=== PATIENT | female | born 1955 | race Caucasian/White ===

== ENCOUNTER 2017-08-24 15:00 | Outpatient (CLI) | payer OTHER ==
--- NOTE | 2017-08-24 19:04 | CT ---
ABDOMEN AND PELVIC CT SCAN WITHOUT IV CONTRAST: 08/24/17 HISTORY: 62-year-old female with left lower quadrant abdominal pain. Noncontrast abdomen and pelvic CT scan is performed. Status post cholecystectomy. Visualized liver, pancreas, spleen, adrenal glands are unremarkable as evaluated without IV contrast. There is no evid ence for acute obstruction. In the left kidney, there is a 0.6 cm diameter calcific focus which a ppears to be more in the cortex of the kidney and associated with focal area of cortical loss. There is a 1.2 cm diameter low attenuation focus in the lower pole which is associated with a small punct ate calcification. This is probably a cyst. No evidence for ureteral calculus. Normal appearing appe ndix. There is some irregular wall thickening and pericolonic fat stranding involving the sigmoid co dwayne with some associated diverticulosis, evidence for acute diverticulitis. No evidence for a draina ble abscess or free intraperitoneal air. IMPRESSION: Evidence for acute sigmoid colon diverticulitis. No obstructing calculus. Small cyst in lower kavya e of the left kidney with adjacent scar and punctate calcification which appears to be more in the c ortex although it is conceivable it could represent a nonobstructing renal calculus. Normal appearin g appendix. Other findings as above. POS: YOVANI
== END 2017-08-24 15:01 | disposition home or self-care (01) ==
LOC: CT 15:00
PROVIDERS: ATTEND Family Medicine
DX: R10.32 Left lower quadrant pain (principal); K57.12 Diverticulitis of small intestine without perforation or abscess without bleeding
CPT/HCPCS: 74176

== ENCOUNTER 2019-02-04 10:14 | Outpatient (CLI) | payer OTHER ==
--- NOTE | 2019-02-04 13:06 | ULT ---
LIMITED LEFT BREAST ULTRASOUND: DATE: 02/04/2019. PROVIDED CLINICAL HISTORY: Left breast palpable abnormality. FINDINGS: Limited sonographic interrogation was performed of the left breast in the region of palpable concern. The sonographic appearance of the breast parenchyma in this region is normal. IMPRESSION: BIRADS category 1 - negative. Negative imaging findings should not preclude further evaluation of a clinically suspicious area. The patient is referred back to her clinician. POS: OFF
--- NOTE | 2019-02-11 13:20 | MMO ---
MAMMO Bilat Diag [facility]. CLINICAL HISTORY: Patient is 63 years old and is seen for diagnostic exam and palpable abnormality in the left breast. The patient has the following family history of breast cancer: aunt, at age 75. The patient has no personal history of cancer. VIEWS: The views performed were: bilateral craniocaudal with tomosynthesis; bilateral mediolateral oblique with tomosynthesis; and bilateral mediolateral with tomosynthesis. FILMS COMPARED: The present examination has been compared to prior imaging studies performed at [facility] on 06/27/1996, 11/27/1999, 03/09/2004, 02/02/2007, 01/05/2010, 11/25/2014, 07/04/2017 and 02/04/2019. MAMMOGRAM FINDINGS: There are scattered fibroglandular densities. There are benign appearing calcifications seen in both breasts. There are no mammographic or sonographic abnormalities in the area of palpable concern. The patient is referred back to her clinician. Negative imaging findings should not preclude biopsy if clinical findings are suspicious. There are no suspicious masses, calcifications or areas of architectural distortion. IMPRESSION: THERE ARE NO MAMMOGRAPHIC OR SONOGRAPHIC ABNORMALITIES IN THE AREA OF PALPABLE CONCERN. THE PATIENT IS REFERRED BACK TO HER CLINICIAN. NEGATIVE IMAGING FINDINGS SHOULD NOT PRECLUDE BIOPSY IF CLINICAL FINDINGS ARE SUSPICIOUS. THE RESULTS OF THIS EXAM WERE SENT TO THE PATIENT. ACR BI-RADS Category 2 - Benign finding MAMMOGRAPHY NOTE: 1. A negative mammogram report should not delay a biopsy if a dominant of clinically suspicious mass is present. 2. Approximately 10% to 15% of breast cancers are not detected by mammography. 3. Adenosis and dense breasts may obscure an underlying neoplasm.
== END 2019-02-04 10:15 | disposition home or self-care (01) ==
LOC: BICMAMMO 10:14
PROVIDERS: ATTEND Family Medicine
DX: N63.20 Unspecified lump in the left breast, unspecified quadrant (principal); Z80.3 Family history of malignant neoplasm of breast
CPT/HCPCS: 77066; G0279

== ENCOUNTER 2020-12-30 06:14 | Emergency (ER) | payer OTHER ==
[2020-12-30 06:59] LABS: #Basophils 0.1 thou/uL (0.0-0.2); #Lymphocytes 1.4 thou/uL (1.20-3.40); #Monocytes 0.4 thou/uL (0.11-0.59); #Neutrophils 5.4 thou/uL (1.40-6.50); %Basophils 0.9 % (0.0-1.0); %Eosinophils 0.5 % (0.0-10.0); %Lymphocytes 18.6 % (21.0-51.0); %Monocytes 5.8 % (0.0-10.0); %Neutrophils 74.2 % (42.0-75.0); Hemoglobin 15.2 g/dL (12.0-16.0); Mean Corpuscular HGB CONC 33.8 g/dL (32.0-36.0); Mean Corpuscular Volume 91.7 fL (78.0-98.0); Mean Platelet Volume 8.6 fL (7.4-10.4); Platelet Count 190 thou/uL (130-400); Red Blood Cell (RBC) Count 4.89 mill/uL (4.20-5.40); White Blood Cell (WBC) Count 7.3 thou/uL (4.8-10.8)
[2020-12-30 07:24] LABS: ALT (SGPT) 50 U/L (8-55); AST (SGOT) 41 U/L (5-34); Alkaline Phosphatase 114 U/L (40-110); Anion Gap 13 mmol/L (10-20); BUN (Urea Nitrogen) 17 mg/dL (9.8-20.1); Bilirubin, Total 0.5 mg/dL (0.2-1.2); Calc. Creatinine Clearance 0 mL/min (70-130); Calcium 8.4 mg/dL (7.8-10.44); Carbon Dioxide 27 mmol/L (23-31); Chloride 99 mmol/L (98-107); Globulin 3.2 g/dL (2.4-3.5); Glucose 138 mg/dL (80-115); Lipase 52 U/L (8-78); Potassium 3.4 mmol/L (3.5-5.1); Protein, Total 7.2 g/dL (5.8-8.1); Sodium 136 mmol/L (136-145)
--- NOTE | 2020-12-30 08:27 | CT ---
CT head noncontrast HISTORY: Syncope. FINDINGS: There is no evidence of acute intracranial hemorrhage or infarct. The ventricles appear nor mal in size, shape and position. There is no mass effect or shift of midline structures. Cerebellar tonsillar ectopia is noted on the sagittal images with preservation of the normal rounded configuration. Visualized paranasal sinuses remain well aerated. IMPRESSION : No acute intracranial abnormalities are demonstrated.
[2020-12-30] MEDS ORDERED: Potassium Chloride 20 MEQ TAB ONE (08:46)
--- NOTE | 2020-12-30 08:47 | RAD ---
CHEST 1 VIEW: HISTORY: Syncope. Positive COVID patient. FINDINGS: Normal cardiac silhouette. The bones and pleural spaces are clear. No pneumothorax or acute osseous abnormalities. IMPRESSION: No acute cardiopulmonary process. POS: PPP
== END 2020-12-30 09:33 | disposition home or self-care (01) ==
LOC: ERS 06:14
DX: R11.2 Nausea with vomiting, unspecified (principal); U07.1 COVID-19; R55 Syncope and collapse; E87.6 Hypokalemia; I10 Essential (primary) hypertension; Z79.899 Other long term (current) drug therapy
CPT/HCPCS: 70450; 71045; 80053; 83690; 84484; 85025; 85379; 93005

== ENCOUNTER 2021-08-20 10:33 | Outpatient (CLI) | payer SELFPAY ==
[2021-08-21 18:41] LABS: SARS-CoV-2 PCR by NAA Not Detected (NotDetected)
== END 2021-08-20 10:34 | disposition home or self-care (01) ==
LOC: LABBT 10:33
PROVIDERS: ATTEND Ophthalmology Retina Specialist
DX: Z01.812 Encounter for preprocedural laboratory examination (principal); H33.42 Traction detachment of retina, left eye; Z20.822 Contact with and (suspected) exposure to COVID-19
CPT/HCPCS: U0003; U0005

== ENCOUNTER 2021-08-24 06:29 | Day surgery (SDC) | payer OTHER ==
[2021-08-23 08:37] VITALS: BMI 31.4
[~2021-08-24 06:29] MED LIST: Fentanyl 100 MCG/2 ML VIAL ONE; Midazolam HCl 2 mg/2 ml Vial ONE; PROPOFOL 20 ML ONE
[2021-08-24] MEDS ORDERED: EPINEPHrine 0.3 MG in Ophthalmic Irrigation Solution 500 ML IRR SCH (06:30)
[2021-08-24] MEDS ORDERED: Phenylephrine 2.5% Ophth Soln 5 ML BOT ONE (06:38)
[2021-08-24] MEDS ORDERED: Cyclopentolate 1% Opth Drop 2 ML BOT ONE (06:38)
[2021-08-24] MEDS ORDERED: Triamcinolone 40 MG/ML VIAL ONE (07:53)
[2021-08-24] MEDS ORDERED: CEFAZOLIN 1 GM VIAL ONE (07:53)
[2021-08-24] MEDS ORDERED: Bupivacaine PF 0.75% SDV 10 ML ONE (07:53)
[2021-08-24] MEDS ORDERED: Lidocaine 1% PF 5 ML VIAL ONE (07:53)
[2021-08-24] MEDS ORDERED: Lidocaine 4% PF 5 ML AMP ONE (07:53)
== END 2021-08-24 09:39 | disposition home or self-care (01) ==
LOC: SDC 06:29
PROVIDERS: ATTEND Ophthalmology Retina Specialist
PROC: 08T53ZZ Resection of Left Vitreous, Percutaneous Approach (ICD-10-PCS; principal; 2021-08-24)
PROC: 08NF3ZZ Release Left Retina, Percutaneous Approach (ICD-10-PCS; principal; 2021-08-24)
DX: H33.42 Traction detachment of retina, left eye (principal); Z79.899 Other long term (current) drug therapy; Z88.1 Allergy status to other antibiotic agents
CPT/HCPCS: C1814; J0171; J0690; J2250; J2704; J3010; J3301; J3490

== ENCOUNTER 2021-12-24 13:55 | Outpatient (CLI) | payer OTHER ==
[2021-12-25 00:42] LABS: SARS-CoV-2 PCR by NAA Not Detected (NotDetected)
== END 2021-12-24 13:56 | disposition home or self-care (01) ==
LOC: LABBT 13:55
PROVIDERS: ATTEND Ophthalmology Retina Specialist
DX: Z01.812 Encounter for preprocedural laboratory examination (principal); H33.052 Total retinal detachment, left eye; Z20.822 Contact with and (suspected) exposure to COVID-19
CPT/HCPCS: U0003; U0005

== ENCOUNTER 2021-12-28 08:08 | Day surgery (SDC) | payer OTHER ==
[2021-12-27 13:49] VITALS: BMI 31.9
[~2021-12-28 08:08] MED LIST changes: +EPINEPHrine 0.3 MG in Ophthalmic Irrigation Solution 500 ML IRR SCH; -PROPOFOL 20 ML ONE
[2021-12-28] MEDS ORDERED: Phenylephrine 2.5% Ophth Soln 5 ML BOT ONE (08:17)
[2021-12-28] MEDS ORDERED: Cyclopentolate 1% Opth Drop 2 ML BOT ONE (08:17)
[2021-12-28] MEDS ORDERED: Maxitrol 0.1% Opth Oint 3.5 GM TUBE ONE (09:55)
[2021-12-28] MEDS ORDERED: Triamcinolone 40 MG/ML VIAL ONE (09:55)
[2021-12-28] MEDS ORDERED: PROPOFOL 200 MG/20 ML VIAL ONE (09:55)
[2021-12-28] MEDS ORDERED: Bupivacaine PF 0.75% SDV 10 ML ONE (09:55)
[2021-12-28] MEDS ORDERED: Lidocaine 4% PF 5 ML AMP ONE (09:55)
== END 2021-12-28 11:11 | disposition home or self-care (01) ==
LOC: SDC 08:08
PROVIDERS: ATTEND Ophthalmology Retina Specialist
PROC: 08QF3ZZ Repair Left Retina, Percutaneous Approach (ICD-10-PCS; principal; 2021-12-28)
PROC: 08T53ZZ Resection of Left Vitreous, Percutaneous Approach (ICD-10-PCS; principal; 2021-12-28)
DX: H33.42 Traction detachment of retina, left eye (principal); H43.12 Vitreous hemorrhage, left eye; Z79.82 Long term (current) use of aspirin; Z79.899 Other long term (current) drug therapy; Z88.1 Allergy status to other antibiotic agents
CPT/HCPCS: J0171; J2250; J2704; J3010; J3301; J3490

== ENCOUNTER 2022-01-12 10:57 | Outpatient (CLI) | payer OTHER | END 2022-01-12 10:58 | disposition home or self-care (01) | LOC: BICMAMMO 10:57 | PROVIDERS: ATTEND Family Medicine | DX: Z12.31 Encounter for screening mammogram for malignant neoplasm of breast (principal); Z80.3 Family history of malignant neoplasm of breast | CPT/HCPCS: 77063; 77067 ==

== ENCOUNTER 2023-01-26 12:23 | Outpatient (CLI) | payer MEDICARE, OTHER | END 2023-01-26 12:24 | disposition home or self-care (01) | LOC: BICMAMMO 12:23 | PROVIDERS: ATTEND Family Medicine | DX: Z12.31 Encounter for screening mammogram for malignant neoplasm of breast (principal); R92.1 Mammographic calcification found on diagnostic imaging of breast | CPT/HCPCS: 77063; 77067 ==